=== PATIENT | male | born 1955 | race Caucasian/White ===

== ENCOUNTER 2017-02-02 19:25 | Emergency (ER) | payer OTHER ==
[~2017-02-02] VITALS: Ht 167.6 cm; Wt 74.6 kg
[~2017-02-02 19:25] MED LIST: NORCO 5/3251 TABLET PO
[2017-02-02 19:58] LABS: HEMATOCRIT 40.4 % (38.0-50.0); MCH 30.3 PG (29.0-34.0); MCHC 34.2 G/DL (30.0-36.0); MCV 88.8 FL (86-99); PLATELET COUNT 222 K/uL (156-360); RBC DIS.WIDTH-CV 12.3 % (11.8-14.6); RBC DIS.WIDTH-SD 39.8 % (39-53); RED BLOOD COUNT 4.55 M/uL (4.00-5.50); WHITE BLOOD COUNT 10.6 K/uL (4.1-10.2)
[2017-02-02 20:21] LABS: CHLORIDE 103 mEq/L (99-109); POTASSIUM 3.7 mEq/L (3.7-5.4); SODIUM 138 mEq/L (136-147)
[2017-02-02 20:23] LABS: GLUCOSE 105 mg/dL (70-99)
[2017-02-02 20:25] LABS: TOTAL BILIRUBIN 1.2 mg/dL (0.0-1.0)
[2017-02-02 20:27] LABS: ALKALINE PHOSPHATASE 38 IU/L (3-129); GFR ESTIMATE (CALCULATED) > 59 mL/min/
[2017-02-02 20:28] LABS: UREA NITROGEN (BUN) 22 mg/dL (9-23)
[2017-02-02 20:39] LABS: ANION GAP 11 MEQ/L (2-14)
[2017-02-02 20:43] LABS: LIPASE 24 U/L (1.0-51.0)
[2017-02-02 20:47] LABS: TROP-I INTERPRETATION NEGATIVE; TROPONIN-I < 0.01 ng/mL (0.0-0.30)
[2017-02-02 21:05] LABS: ADD MIUA? NO; BILIRUBIN NEGATIVE; BLOOD NEGATIVE; COLOR STRAW ((YELLOW)); GLUCOSE (STRIP) NEGATIVE; KETONES 5; LEUKOCYTES NEGATIVE; NITRITE NEGATIVE; PROTEIN (STRIP) 30; SPECIFIC GRAVITY 1.009 (1.000-1.030); UCUL ADDED? NO; UROBILINOGEN 0.2 MG/DL (0.2-1.0)
[2017-02-02] MEDS ORDERED: CARAFATE1 GM PO (22:21)
[2017-02-02 23:00] VITALS: BP 134/79
== END 2017-02-02 23:06 | disposition home or self-care (01) ==
LOC: EME 19:25
PROVIDERS: Emergency Medicine
DX: R10.9 Unspecified abdominal pain (principal); M54.9 Dorsalgia, unspecified
CPT/HCPCS: 74177; 80053; 81003; 83690; 84484; 85027; 93005; 99281; 99285; J2405; J3010; J7030